=== PATIENT | female | born 1960 | race Caucasian/White ===

== ENCOUNTER 2023-05-01 15:25 | Outpatient (CLI) | payer BC | END 2023-05-01 15:26 | disposition home or self-care (01) | LOC: BICMAMMO 15:25 | PROVIDERS: ATTEND Family Medicine | DX: M85.89 Other specified disorders of bone density and structure, multiple sites (principal); M81.0 Age-related osteoporosis without current pathological fracture; Z79.899 Other long term (current) drug therapy | CPT/HCPCS: 77080 ==

== ENCOUNTER 2024-08-13 07:50 | Outpatient (CLI) | payer BC | END 2024-08-13 07:51 | disposition home or self-care (01) | LOC: BICRAD 07:50 | PROVIDERS: ATTEND Internal Medicine | DX: M25.571 Pain in right ankle and joints of right foot (principal); M79.89 Other specified soft tissue disorders ==

== ENCOUNTER 2025-07-11 08:10 | Outpatient (CLI) | payer BC | END 2025-07-11 08:11 | disposition home or self-care (01) | LOC: BICMAMMO 08:10 | PROVIDERS: ATTEND Family Medicine | DX: M81.0 Age-related osteoporosis without current pathological fracture (principal); M85.89 Other specified disorders of bone density and structure, multiple sites | CPT/HCPCS: 77080 ==